=== PATIENT | female | born 1995 | race Caucasian/White ===

== ENCOUNTER → 2021-05-26 | Day surgery (SDC) | payer BC ==
[~2021-05-26] VITALS: Ht 170.2 cm; Wt 61.3 kg
[~2021-05-26] MED LIST: FLUO90CA5 PO; IV RINGERS,LACTATED 1000ML 1,000 ML IV ONE; LISD40CA3 PO
[2021-05-26 09:37] VITALS: BP 119/92
[2021-05-26 10:08] LABS: CALCIUM 8.6 mg/dL (8.5-10.1); CREATININE 0.8 mg/dL (0.6-1.0); GFR 87.4; POTASSIUM 3.4 mmol/L (3.5-5.1)
[2021-05-26 10:53] VITALS: BP 105/59
--- NOTE | 2021-05-26 16:38 | HP ---
DATE OF SERVICE: 05/26/2021 ADMIT DATE: 05/26/2021 UPDATED HISTORY AND PHYSICAL REASON: Diarrhea. HISTORY OF PRESENT ILLNESS: A 25-year-old female whose past medical history is significant for tachybrady syndrome with cardiac arrest, status post defibrillator placement, is seen for a persistent diarrhea that has been loose, watery; it is unimproved with pancreatic enzyme replacement. There is no family history of IBD, celiac and/or colon cancer. Continued issues despite diet changes. She requests additional evaluation. PAST MEDICAL HISTORY: Tachycardia syndrome with medicines being Prozac and Vyvanse. ALLERGIES: None. FAMILY AND SOCIAL HISTORY: MA with her mother, hypertension with her father. SOCIAL HISTORY: She is a social drinker and nonsmoker. PAST SURGICAL HISTORY: Status post defibrillator placement and ulcer surgery. REVIEW OF SYSTEMS: Per records. PHYSICAL EXAMINATION: GENERAL: Reveals a well-nourished, well-developed female. VITAL SIGNS: Temp is 97.4, pulse 85, respiratory rate 20. LUNGS: Clear. CARDIOVASCULAR: Reveals an S1, S2, without S3, S4 or appreciable murmur with a defibrillator in place. ABDOMEN: Reveals a soft abdomen, normal bowel sounds, without appreciable hepatosplenomegaly. EXTREMITIES: Reveals no cyanosis, clubbing or edema. IMPRESSION AND PLAN: Diarrhea, etiology is to be determined. Differential includes irritable bowel syndrome, inflammatory bowel disease, celiac disease, collagenous colitis, colon cancer; therefore, I recommended colonoscopy. Risks and benefits of procedure and upper endoscopy risks, benefits have been discussed. The patient is willing to proceed at this time. JAIMEE DR: Meghan TID: [id number]
--- NOTE | 2021-05-29 14:07 | PATHOLOGY ---
[facility] Accession Number: [id number] . 01 Material submitted: . PART A: duodenum - DUODENAL BIOPSY PART B: colon - RANDOM COLON BIOPSY . 01 Clinical history: . DIARRHEA EGD/COLON R/O CELIAC DISEASE . 02 Diagnosis: A. Duodenal biopsies: - No diagnostic abnormalities. . B. Colonic mucosa, random colon biopsies: - No diagnostic abnormalities. (JPM:pit; 05/29/2021) P 05/29/2021 1324 Local . 02 Comment: Sections of the duodenal biopsy reveal multiple segments of duodenal mucosa. Where best oriented, the mucosal villi show no sprue-like changes or significant inflammatory changes. . Sections of the random colon biopsy reveal multiple segments of colonic mucosa containing two mucosal-associated lymphoid aggregates. There is no evidence of a chronic destructive colitis, lymphocytic colitis, or collagenous colitis. (JPM:pit; 05/29/2021) . 02 Electronically signed: . Khadar Thomas MD, Pathologist NPI- [id number] . 01 Gross description: . A. The specimen is received in formalin, labeled "Nora Ramsey, duodenal biopsy". Received are multiple segments of pale jordan tissue ranging in size from 0.2-0.5 cm in maximum dimensions. The specimen is submitted entirely in cassette A1. . B. The specimen is received in formalin, labeled "Nora Ramsey, random colon biopsy". Received are multiple segments of pale jordan tissue ranging in size from 0.1-0.5 cm in maximum dimensions. The specimen is submitted entirely in cassette B1. (CAA; 05/26/2021) QAC/QAC 05/26/2021 1600 Local . 02 Pathologist provided ICD-10: R19.7 . 02 CPT . 207733, [id number] Specimen Comment: A courtesy copy of this report has been sent to [phone] Specimen Comment: Report sent to Specimen Comment: A duplicate report has been generated due to demographic updates. [facility]formed at: [facility] [address] [id number] MD Jong Miller MD Phone: [phone] [facility]formed at: [facility] [address] [place], [place] [id number] MD Khadar Thomas MD Phone: [phone]
== END | disposition home or self-care (01) ==
LOC: SURG 08:59
PROVIDERS: ATTEND Internal Medicine Gastroenterology
DX: R19.7 Diarrhea, unspecified (principal); K64.0 First degree hemorrhoids; K63.89 Other specified diseases of intestine; K31.89 Other diseases of stomach and duodenum; Z79.899 Other long term (current) drug therapy; Z98.890 Other specified postprocedural states; Z82.49 Family history of ischemic heart disease and other diseases of the circulatory system
CPT/HCPCS: 36415; 43239; 45380; 80048; 81025; 88305